=== PATIENT | male | born 1960 | race Caucasian/White ===

== ENCOUNTER 2017-09-12 06:29 | Emergency (ER) | payer OTHER ==
--- NOTE | 2017-09-12 07:29 | ER Document Report ---
HPI - HPI Patient complains to provider of: right foot pain and swelling Onset: Other - several months Onset/Duration: Better - afrter arriving here Quality of pain: Burning, Throbbing Pain Level: 5 Context: 56 [facility] c/o several months of right foot pain and pain behind right leg. No back pain. [facility] thinks it [facility] tx with meds. Pt here because the pain med is not helping. Xrays were negative, r/o gout. No MR done yet. No saddle anesthesia. Feels better after arriving to the ER. He was told it was arthritis. Associated Symptoms: None Exacerbated by: Movement Relieved by: Denies - ROS ROS below otherwise negative: Yes Systems Reviewed and Negative: Yes All other systems reviewed and negative - MUSCULOSKELETAL Musculoskeletal: REPORTS: Extremity pain - right foot Past Medical History - General Information source: Patient - Social History Smoking Status: Never Smoker Chew tobacco use (# tins/day): No Frequency of alcohol use: Occasional Drug Abuse: None Lives with: Spouse/Significant other Family History: Reviewed & Not Pertinent Patient has suicidal ideation: No Patient has homicidal ideation: No - Medical History Medical History: Negative Renal/ Medical History: Denies: Hx Peritoneal Dialysis Surgical Hx: Negative Vertical Provider Document - CONSTITUTIONAL Agree With Documented VS: Yes Exam Limitations: No Limitations General Appearance: No Apparent Distress - INFECTION CONTROL TRAVEL OUTSIDE OF THE [place] IN LAST 30 DAYS: No - HEENT HEENT: Normocephalic - NECK Neck: Supple - MUSCULOSKELETAL/EXTREMETIES Musculoskeletal/Extremeties: MAEW, FROM, Tender - mild tender plantar right foot , and dorsal foot over the carpals, mild swelling - NEURO Level of Consciousness: Awake Motor/Sensory: No Motor Deficit, No Sensory Deficit Notes: 2+ DP Discharge - Discharge Clinical Impression: right foot pain and parathesia, right leg posterior leg pain Condition: Good Disposition: HOME, SELF-CARE Instructions: Leg Pain Nonspecific ([facility]), Steroid Medication Additional Instructions: [facility] for [facility] to [facility] any worsening symptoms Prescriptions: Prednisone [Deltasone 10 mg Tablet] 10 mg PO ASDIR PRN #21 tablet PRN Reason:
[2017-09-12 07:40] VITALS: BP 140/83
== END 2017-09-12 08:22 | disposition home or self-care (01) ==
LOC: ER 06:29
DX: M79.604 Pain in right leg (principal); R20.2 Paresthesia of skin
CPT/HCPCS: 99283